=== PATIENT | male | born 1975 | race Caucasian/White ===

== ENCOUNTER 2019-01-24 08:32 | Outpatient (CLI) | payer BC ==
[2019-01-24 09:18] LABS: HDL 31 mg/dL (>40); eGFR (Non-African) > 60
== END 2019-01-24 08:37 ==
LOC: LAB 08:32
PROVIDERS: ATTEND Family Medicine
DX: Z13.220 Encounter for screening for lipoid disorders (principal)
CPT/HCPCS: 36415; 80053; 80061